=== PATIENT | male | born 1975 | race Caucasian/White ===

== ENCOUNTER 2020-07-13 03:53 | Emergency (ER) | payer SELFPAY ==
--- NOTE | 2020-07-13 04:18 | EDM.PDOCBH ---
ED HPI GENERAL MEDICAL PROBLEM - General Chief Complaint: Behavioral/Psych Stated Complaint: MENTAL HEALTH Time Seen by Provider: 07/13/20 04:17 - History of Present Illness INITIAL COMMENTS - FREE TEXT/NARRATIVE: 44-year-old male was brought in by PD for mental health evaluation. 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 He was hauling a load out of [place] and about 3 hours to the east of their heading [place] the patient thought he had several cars following him this is gone on for several days and continues on when he is this far east. Tonight he was in a hotel room and thought he heard people juggling his doorknob he looked through the people and saw 3 people there he grabbed a chair stuck under the doorknob to help secure that and he states that the doorknob kept jiggling for several hours the patient became somewhat concerned about this and picked up a corner lamp and threw it through the window. He then walked out the window. At this point police were notified. At this time the patient is calm cooperative denies any suicidal thoughts or intents denies any intent or wishes to hurt anybody. He understands he is seeing and hearing things that other people do not hear and see. He denies any recreational drugs and states he drank part of a beer this evening. Today he is supposed to be in route to drop off a load in [place] and then had to [place]. The patient has been off his blood pressure medications for a little bit of time perhaps a week or so he believes he was taking clonidine 0.1 and amlodipine 5 mg. - Related Data Allergies Allergy/AdvReac Type Severity Reaction Status Date / Time No Known Allergies Allergy Verified 07/13/20 04:06 Home Meds: Home Meds cloNIDine [Catapres] 0.05 mg PO Q12HR #10 tab 07/13/20 [Rx] Past Medical History Cardiovascular History: Reports: Hypertension Other Cardiovascular History: hx of HTN states he hasnt been taking medication for a while Social & Family History - Tobacco Use Tobacco Use Status *Q: Current Every Day Tobacco User Years of Tobacco use: 20 Packs/Tins Daily: 0.2 ED ROS GENERAL - Review of Systems Review Of Systems: See Below Constitutional: Reports: No Symptoms HEENT: Reports: No Symptoms Respiratory: Reports: No Symptoms Cardiovascular: Reports: No Symptoms Endocrine: Reports: No Symptoms GI/Abdominal: Reports: No Symptoms : Reports: No Symptoms Musculoskeletal: Reports: No Symptoms Skin: Reports: No Symptoms Neurological: Reports: No Symptoms Psychiatric: Reports: No Symptoms ED EXAM, BEHAVIORAL HEALTH - Physical Exam Exam: See Below Exam Limited By: No Limitations General Appearance: Alert, No Apparent Distress Head: Atraumatic, Normocephalic Neck: Normal Inspection, Supple, Non-Tender, Full Range of Motion Respiratory/Chest: No Respiratory Distress, Lungs Clear, Normal Breath Sounds Cardiovascular: Regular Rate, Rhythm, No Edema, Diastolic Murmur GI/Abdominal: Normal Bowel Sounds, Soft, Non-Tender Back Exam: Normal Inspection. No: CVA Tenderness (L), CVA Tenderness (R) Extremities: Normal Inspection, No Pedal Edema Neurological: Alert, Normal Cognition Psychiatric: Alert, Other (He is mildly anxious but calmed right down he admits to seeing and hearing people that other people do not. He denies any suicidal wishes and has no intent to hurt anybody else. He is oriented to where he is at and to person and time) Skin Exam: Warm, Dry, Intact COURSE, BEHAVIORAL HEALTH COMP - Course Vital Signs: Last Vital Signs Temp 36.7 C 07/13/20 04:03 Pulse 103 H 07/13/20 04:03 Resp 16 07/13/20 04:03 BP 178/124 H 07/13/20 06:47 Pulse Ox 99 07/13/20 04:03 Orders, Labs, Meds: Laboratory Tests 07/13/20 07/13/20 07/13/20 Range/Units 05:10 05:10 05:25 WBC 7.15 (4.23-9.07) K/mm3 RBC 4.61 L (4.63-6.08) M/mm3 Hgb 14.9 (13.7-17.5) gm/dl Hct 43.8 (40.1-51.0) % MCV 95.0 H (79.0-92.2) fl MCH 32.3 H (25.7-32.2) pg MCHC 34.0 (32.2-35.5) g/dl RDW Std Deviation 46.8 H (35.1-43.9) fL Plt Count 322 (163-337) K/mm3 MPV 9.7 (9.4-12.3) fl Neut % (Auto) 67.1 (34.0-67.9) % Lymph % (Auto) 22.0 (21.8-53.1) % [place] % (Auto) 9.9 (5.3-12.2) % Eos % (Auto) 0.4 L (0.8-7.0) Baso % (Auto) 0.3 (0.1-1.2) % Neut # (Auto) 4.80 (1.78-5.38) K/mm3 Lymph # (Auto) 1.57 (1.32-3.57) K/mm3 [place] # (Auto) 0.71 (0.30-0.82) K/mm3 Eos # (Auto) 0.03 L (0.04-0.54) K/mm3 Baso # (Auto) 0.02 (0.01-0.08) K/mm3 Sodium (136-145) mEq/L Potassium (3.5-5.1) mEq/L Chloride (98-107) mEq/L Carbon Dioxide (21-32) mEq/L Anion Gap (5-15) BUN (7-18) mg/dL Creatinine (0.7-1.3) mg/dL Est Cr Clr Drug Dosing mL/min Estimated GFR (MDRD) (>60) mL/min BUN/Creatinine Ratio (14-18) Glucose (74-106) mg/dL Calcium (8.5-10.1) mg/dL Total Bilirubin (0.2-1.0) mg/dL AST (15-37) U/L ALT (16-63) U/L Alkaline Phosphatase (46-116) U/L Total Protein (6.4-8.2) g/dl Albumin (3.4-5.0) g/dl Globulin gm/dL Albumin/Globulin Ratio (1-2) Urine Color Dark yellow (Yellow) Urine Appearance Clear (Clear) Urine pH 6.0 (5.0-8.0) Ur Specific [place] > or = 1.030 (1.005-1.030) Urine Protein 2+ H (Negative) Urine Glucose (UA) Negative (Negative) Urine Ketones 2+ H (Negative) Urine Occult Blood Negative (Negative) Urine Nitrite Negative (Negative) Urine Bilirubin 1+ H (Negative) Urine Urobilinogen 1.0 (0.2-1.0) Ur Leukocyte Esterase Negative (Negative) U Hyaline Cast (Auto) 5-10 H (0-5) /lpf Urine RBC 0-5 (0-5) /hpf Urine WBC 0-5 (0-5) /hpf Ur Squamous Epith Cells 0-5 (0-5) /hpf Urine Bacteria Few (FEW) /hpf Urine Mucus Many H (FEW) /hpf Urine Opiates Screen Negative (ODNBZH=068) Ur Buprenorphine Scrn Negative (CUTOFF=10) Ur Oxycodone Screen Negative (XUB9CI=631) Urine Methadone Screen Negative (PGM2QQ=927) Ur Propoxyphene Screen Negative (ULWSKQ=535) Ur Barbiturates Screen Negative (MYBZAN=188) Ur Tricyclics Screen Negative (WVLGDL=881) Ur Phencyclidine Scrn Negative (CUTOFF=25) Ur Amphetamine Screen Presumptive positive H (RYDAMF=456) U Methamphetamines Scrn Presumptive positive H (USNDPT=807) U Benzodiazepines Scrn Negative (KTKTXX=450) U Cocaine Metab Screen Negative (ABICSP=876) U Marijuana (THC) Screen Negative (CUTOFF=50) 07/13/20 Range/Units 05:25 WBC (4.23-9.07) K/mm3 RBC (4.63-6.08) M/mm3 Hgb (13.7-17.5) gm/dl Hct (40.1-51.0) % MCV (79.0-92.2) fl MCH (25.7-32.2) pg MCHC (32.2-35.5) g/dl RDW Std Deviation (35.1-43.9) fL Plt Count (163-337) K/mm3 MPV (9.4-12.3) fl Neut % (Auto) (34.0-67.9) % Lymph % (Auto) (21.8-53.1) % [place] % (Auto) (5.3-12.2) % Eos % (Auto) (0.8-7.0) Baso % (Auto) (0.1-1.2) % Neut # (Auto) (1.78-5.38) K/mm3 Lymph # (Auto) (1.32-3.57) K/mm3 [place] # (Auto) (0.30-0.82) K/mm3 Eos # (Auto) (0.04-0.54) K/mm3 Baso # (Auto) (0.01-0.08) K/mm3 Sodium 143 (136-145) mEq/L Potassium 3.1 L (3.5-5.1) mEq/L Chloride 103 (98-107) mEq/L Carbon Dioxide 28 (21-32) mEq/L Anion Gap 15.1 H (5-15) BUN 20 H (7-18) mg/dL Creatinine 1.4 H (0.7-1.3) mg/dL Est Cr Clr Drug Dosing 73.21 mL/min Estimated GFR (MDRD) 56 (>60) mL/min BUN/Creatinine Ratio 14.3 (14-18) Glucose 91 (74-106) mg/dL Calcium 8.8 (8.5-10.1) mg/dL Total Bilirubin 0.8 (0.2-1.0) mg/dL AST 39 H (15-37) U/L ALT 41 (16-63) U/L Alkaline Phosphatase 64 (46-116) U/L Total Protein 7.1 (6.4-8.2) g/dl Albumin 3.8 (3.4-5.0) g/dl Globulin 3.3 gm/dL Albumin/Globulin Ratio 1.2 (1-2) Urine Color (Yellow) Urine Appearance (Clear) Urine pH (5.0-8.0) Ur Specific [place] (1.005-1.030) Urine Protein (Negative) Urine Glucose (UA) (Negative) Urine Ketones (Negative) Urine Occult Blood (Negative) Urine Nitrite (Negative) Urine Bilirubin (Negative) Urine Urobilinogen (0.2-1.0) Ur Leukocyte Esterase (Negative) U Hyaline Cast (Auto) (0-5) /lpf Urine RBC (0-5) /hpf Urine WBC (0-5) /hpf Ur Squamous Epith Cells (0-5) /hpf Urine Bacteria (FEW) /hpf Urine Mucus (FEW) /hpf Urine Opiates Screen (TQCCWJ=974) Ur Buprenorphine Scrn (CUTOFF=10) Ur Oxycodone Screen (JGY7DP=216) Urine Methadone Screen (OAI2ZH=278) Ur Propoxyphene Screen (XRMAYL=823) Ur Barbiturates Screen (FIJNDR=307) Ur Tricyclics Screen (FSSNIJ=540) Ur Phencyclidine Scrn (CUTOFF=25) Ur Amphetamine Screen (XBTMJE=302) U Methamphetamines Scrn (JOWYMV=835) U Benzodiazepines Scrn (EGBFQO=979) U Cocaine Metab Screen (YPQLIU=052) U Marijuana (THC) Screen (CUTOFF=50) Medications Discontinued Medications Generic Name Dose Route Start Last Admin Trade Name Nasreen PRN Reason Stop Dose Admin Clonidine HCl 0.05 mg 07/13/20 05:01 07/13/20 05:06 Catapres PO 07/13/20 05:02 0.05 mg ONETIME ONE Administration Potassium Chloride 40 meq 07/13/20 06:51 Klor-Con M20 PO 07/13/20 06:52 ONETIME ONE Re-Assessment/Re-Exam: Time the patient is not of at a point where he can be committed. The patient does ask to have his blood pressure medication refilled. He also asked for some to help him sleep. Knowing he is going to get on the road shortly I cannot give him anything to help him sleep interestingly has developed these symptoms after coming off clonidine. I will restart the clonidine but the duration he has been off it is not entirely certain and where his blood pressures are at I will start him on half of a 0.1 twice daily the patient can follow-up with his regular healthcare provider back in [place] this next week Medical Clearance: 07/13/20 06:55 Refer to labs. I discussed the amphetamines that showed up in the urine drug screen. His blood pressure is a little lower than when he came in we will discharge at this time. Departure - Departure Time of Disposition: 06:55 Disposition: Home, Self-Care 01 Clinical Impression: Hypertension, Psychotic episode - Discharge Information Prescriptions: cloNIDine [Catapres] 0.05 mg PO Q12HR #10 tab Referrals: PCP,Not In Area [Primary Care Provider] - Forms: ED Department Discharge Additional Instructions: Returned to the emergency room with any questions problems or concerns. Get plenty of sleep before you get back on the road. You should not drive until early to mid this afternoon. Follow-up with your regular healthcare provider as soon as you get back home. Sepsis Event Note (ED) - Evaluation Sepsis Screening Result: No Definite Risk - Focused Exam Vital Signs: Vital Signs Temp Pulse Resp BP BP Pulse Ox 07/13/20 06:47 178/124 H 07/13/20 05:06 177/118 H 07/13/20 04:03 36.7 C 103 H 16 181/126 H 99
[2020-07-13] MEDS ORDERED: cloNIDine 0.1 MG Tab PO ONE (05:01)
[2020-07-13] MEDS ORDERED: Potassium Chloride 20 MEQ Tab.ER PO ONE (06:51)
== END 2020-07-13 07:13 | disposition home or self-care (01) ==
LOC: JD.ED 03:53
DX: F23 Brief psychotic disorder (principal); I10 Essential (primary) hypertension; Z72.0 Tobacco use; Z79.899 Other long term (current) drug therapy
CPT/HCPCS: 36415; 80053; 80306; 81001; 85025; 99285; A9270; 99284